=== PATIENT | female | born 2000 | race Two or more races ===

== ENCOUNTER 2021-03-02 12:33 | Emergency (ER) | payer SELFPAY ==
[~2021-03-02] VITALS: Ht 170.2 cm; Wt 94.0 kg
[2021-03-02 12:34] VITALS: BP 140/91
== END 2021-03-02 15:38 | disposition left against medical advice (07) ==
LOC: M ED 12:33
DX: Z53.21 Procedure and treatment not carried out due to patient leaving prior to being seen by health care provider (principal)

== ENCOUNTER → 2021-03-02 | Outpatient (CLI) | payer OTHER | LOC: M LABSMTC 13:40 | PROVIDERS: ATTEND Student in an Organized Health Care Education/Training Program | DX: Z11.52 Encounter for screening for COVID-19 (principal) ==